=== PATIENT | female | born 1955 ===

== ENCOUNTER 2017-06-21 10:00 | Day surgery (SDC) | payer OTHER ==
[2017-06-21] MEDS ORDERED: Lidocaine 2% Inj (20ml) ONE (10:45)
[2017-06-21] MEDS ORDERED: Midazolam 2 MG/2 ML VIAL ONE (11:02)
[2017-06-21] MEDS ORDERED: Sodium Chloride 0.9% 1,000 ML IV SCH (12:30)
[2017-06-21 13:00] VITALS: RESP 18; TEMP 98.7
[2017-06-21] MEDS ORDERED: A C T ELECTRONICS XX ONE ×2 (13:31→13:36)
--- NOTE | 2017-06-21 17:57 | CARD ---
APPROVED REPORT EKG Measurement Heart [id number] MI [id number] <Conclusion> Sinus rhythm with occasional premature ventricular complexes Nonspecific T wave abnormality Abnormal ECG
[2017-06-21 18:40] VITALS: BP 124/64; PULSE 70
--- NOTE | 2017-06-29 10:21 | CARD ---
APPROVED REPORT HISTORY The patient is a 62 year-old female with a history of : chronic lung disease, previous diagnostic cath. INDICATION The indication(s) include : unstable angina , abnormal ECG. CASE TECHNIQUE The patient was brought electively to the Cardiac Catheterization Laboratory in a fasting state and was prepped and draped in a sterile manner. The left femoral groin was infiltrated with 2% Lidocaine subcutaneous anesthesia. A sheath was inserted into the left radial artery without difficulty. Coronary angiography was performed using coronary diagnostic catheters. The left coronary system was accessed and visualized with a Guided catheter. Hemostasis was obtained with manual pressure following sheath removal without any complications. PCI Technique Lesion Anticoagulation was achieved with Heparin. Percutaneous coronary intervention was performed on the first diagonal branch segment. The lesion stenosis prior to intervention was 90% with LAVELL 2 flow. A 6 Swedish XB LAD Guide Catheter was used to engage the L M ostium. BALLOON DILATION A Balloon catheter 2.0X12 was inserted and inflated up to 8atm for 30seconds. Repeat angiography revealed the following post-dilatation results: residual stenosis 50%. Final angiography reveals 50 % stenosis with LAVELL 3 flow. COMMENTS There is significant disease with calcification in the LAD and Diagonal. will need Rotaablation and Kissing or bifercation stents. Conclusion POBA of D1 with signficant flow omprovement. Plans for intervetion in the future. Recommendations Daily ASA with Plavix for at least one year Medical Therapy
== END 2017-06-21 19:00 | disposition short-term general hospital (02) ==
LOC: CATH 10:00 → 2RSO 12:23 → CATH 19:00
PROVIDERS: ATTEND Internal Medicine
DX: I25.110 Atherosclerotic heart disease of native coronary artery with unstable angina pectoris (principal); J45.909 Unspecified asthma, uncomplicated; Z87.891 Personal history of nicotine dependence; Z98.51 Tubal ligation status; I20.0 Unstable angina